=== PATIENT | female | born 1960 | race Caucasian/White ===

== ENCOUNTER 2017-11-03 13:16 | Outpatient (CLI) | payer BC ==
--- NOTE | 2017-11-03 16:07 | ULT ---
ULTRASOUND DOPPLER DUPLEX ARTERIAL BILATERAL LOWER EXTREMITIES: DATE: 11/03/17. HISTORY: A 57-year-old female with: M79.604, bilateral leg pain. I70.209, atherosclerotic peripheral vascular disease. TECHNIQUE: Trevino scale, color flow, and spectral analysis, of major arteries of bilateral lower extremities. FINDINGS: There is atherosclerosis throughout all arteries, mostly mild. Highest peak systolic velocities in cm/s followed by white pulsed Doppler waveform: RIGHT: Common femoral: 155, triphasic. Profunda femoral: 85, triphasic. Superficial femoral proximal: 110, triphasic. Superficial femoral, mid: 140, triphasic. Superficial femoral distal: 135, triphasic. Popliteal: 60, biphasic. Anterior tibial: 65, biphasic. Posterior tibial: 60, monophasic. Dorsalis pedis: 30, monophasic. LEFT: Common femoral: 85, triphasic. Profunda femoral: 95, triphasic. Superficial femoral proximal: 105, triphasic. Superficial femoral, mid: 115, triphasic. Superficial femoral distal: 70, triphasic. Popliteal: 40, biphasic. Anterior tibial: 75, biphasic. Posterior tibial: 50, biphasic. Dorsalis pedis: 30, biphasic. IMPRESSION: 1. Mild atherosclerosis throughout all visualized major arteries of the lower extremities. 2. Monophasic flow in the right dorsalis pedis and right posterior tibial arteries, without large dr op in velocities. This is questionable for possible moderate arterial occlusive disease at the right ankle/foot. 3. No evidence of high-grade arterial occlusive disease in the contralateral left lower extremity. POS: [facility]
== END 2017-11-03 13:17 | disposition home or self-care (01) ==
LOC: ULT 13:16
PROVIDERS: ATTEND Family Medicine
DX: I70.203 Unspecified atherosclerosis of native arteries of extremities, bilateral legs (principal); M79.604 Pain in right leg; M79.605 Pain in left leg
CPT/HCPCS: 93923

== ENCOUNTER 2018-02-18 12:34 | Outpatient (CLI) | payer BC ==
--- NOTE | 2018-02-18 14:37 | BD ---
DEXA BONE DENSITY EXAM: Comparison: 02-11-16, 07-29-13 History: 57-year-old post-menopausal female for screening. Lumbar Spine: BMD (g/cm2) L1 0.643 T-Score: -3.2 L2 0.706 T-Score: -2.9 L3 0.762 T-Score: -2.9 L4 0.970 T-Score: -0.8 L1-L4 0.779 T-Score: -2.4 Femoral Neck: 0.553 T-Score: -2.7 Total Femur: 0.661 T-Score: -2.3 Impression: Osteoporosis. POS: [facility]
== END 2018-02-18 12:35 | disposition home or self-care (01) ==
LOC: BICMAMMO 12:34
PROVIDERS: ATTEND Obstetrics & Gynecology
DX: Z12.31 Encounter for screening mammogram for malignant neoplasm of breast (principal); Z13.820 Encounter for screening for osteoporosis; M81.0 Age-related osteoporosis without current pathological fracture; Z80.3 Family history of malignant neoplasm of breast
CPT/HCPCS: 77063; 77067; 77080

== ENCOUNTER 2018-11-17 07:24 | Outpatient (CLI) | payer BC ==
--- NOTE | 2018-11-17 10:30 | CT ---
CT CHEST WITHOUT CONTRAST: Axial tomograms were obtained through the chest without IV enhancement. Lose-dose protocol was followed for screening. INDICATION: Nicotine dependence. Currently smokes 1 pack per day. No comparison. FINDINGS: Lungs show hyperexpansion with emphysematous changes primarily in the upper lobes with central lobar emphysematous change and small peripheral bullae in the apices. No evidence of effusion or infiltrat e. A 4 mm nodule posterior right upper lobe, image 124 axial. Small 4 mm pleural-based nodule posterior right lower lobe superiorly, image 132 axial. Asymmetric pleural thickening posterior left lower lobe image 131 axial. No suspicious pulmonary mass or nodule. The mediastinum appears unremarkable. Osseous structures unremarkable. IMPRESSION: 1. Chronic lung parenchymal changes with emphysematous changes as described above. 2. Small nodular opacities as described above. Recommend 1-year low-dose screening chest CT. Lung rads 2. POS: [facility]
== END 2018-11-17 07:25 | disposition home or self-care (01) ==
LOC: CT 07:24
PROVIDERS: ATTEND Family Medicine
DX: F17.210 Nicotine dependence, cigarettes, uncomplicated (principal); J43.9 Emphysema, unspecified; R91.8 Other nonspecific abnormal finding of lung field
CPT/HCPCS: G0297

== ENCOUNTER 2019-03-02 10:23 | Outpatient (CLI) | payer BC ==
--- NOTE | 2019-03-02 11:57 | MMO ---
Bilateral MAMMO Bilat Diag [facility]. CLINICAL HISTORY: Patient is 58 years old and is seen for diagnostic exam and lump or thickening in the left breast. The patient has the following family history of breast cancer: mother, malignant (generic). The patient has no personal history of cancer. VIEWS: The views performed were: bilateral craniocaudal with tomosynthesis; bilateral mediolateral oblique with tomosynthesis; and bilateral mediolateral with tomosynthesis. FILMS COMPARED: The present examination has been compared to prior imaging studies performed at [facility] on 02/11/2016, 02/16/2017, 02/18/2018 and 03/02/2019. This study has been interpreted with the assistance of computer-aided detection. MAMMOGRAM FINDINGS: The breasts are extremely dense, which may lower the sensitivity of mammography. There is no radiographic abnormality in the region of the palpable abnormality in the left breast. No sonographic abnormality is seen in the region of palpable abnormality. In the right breast, there are no suspicious masses, calcifications or areas of architectural distortion. IMPRESSION: THERE IS NO MAMMOGRAPHIC EVIDENCE OF MALIGNANCY. NO MAMMOGRAPHIC OR SONOGRAPHIC ABNORMALITIES ARE PRESENT TO CORRELATE WITH THE SITE OF PALPABLE CONCERN. THE PATIENT WILL BE REFERRED BACK TO HER CLINICIAN FOR FURTHER CARE. BIOPSY SHOULD NOT BE PRECLUDED BY THE ABSCENCE OF IMAGING FINDINGS, IN THE SETTING OF CLINICAL CONCERN FOR MALIGNANCY. THE FINDINGS AND RECOMMENDATIONS WERE DISCUSSED WITH THE PATIENT PRIOR TO HER LEAVING THE CENTER. A ROUTINE FOLLOW-UP MAMMOGRAM IN 1 YEAR IS RECOMMENDED. THE RESULTS OF THIS EXAM WERE SENT TO THE PATIENT. ACR BI-RADS Category 1 - Negative MAMMOGRAPHY NOTE: 1. A negative mammogram report should not delay a biopsy if a dominant of clinically suspicious mass is present. 2. Approximately 10% to 15% of breast cancers are not detected by mammography. 3. Adenosis and dense breasts may obscure an underlying neoplasm. Reported by: SUZAN VAUGHN MD Electonically Signed: [id number]
--- NOTE | 2019-03-02 12:53 | ULT ---
LEFT BREAST DIAGNOSTIC SONOGRAM: INDICATIONS: History of palpable abnormality within the left breast. FINDINGS: Left breast images from breast 9 through 12 o'clock positions were obtained. No suspicious sonographi c abnormalities seen within the region of palpable concern, upper inner left breast. IMPRESSION: No suspicious sonographic abnormality within the upper inner left breast. POS: [facility]
== END 2019-03-02 10:24 | disposition home or self-care (01) ==
LOC: BICMAMMO 10:23
PROVIDERS: ATTEND Obstetrics & Gynecology
DX: N64.89 Other specified disorders of breast (principal)
CPT/HCPCS: 77066; G0279

== ENCOUNTER 2021-02-05 13:15 | Outpatient (CLI) | payer OTHER | END 2021-02-05 13:16 | disposition home or self-care (01) | LOC: BICMAMMO 13:15 | PROVIDERS: ATTEND Family Medicine | DX: Z12.31 Encounter for screening mammogram for malignant neoplasm of breast (principal); Z12.2 Encounter for screening for malignant neoplasm of respiratory organs; I70.90 Unspecified atherosclerosis; I25.10 Atherosclerotic heart disease of native coronary artery without angina pectoris; Z80.3 Family history of malignant neoplasm of breast; F17.210 Nicotine dependence, cigarettes, uncomplicated | CPT/HCPCS: 71271; 77063; 77067 ==

== ENCOUNTER 2021-10-09 12:46 | Outpatient (CLI) | payer OTHER | END 2021-10-09 12:47 | disposition home or self-care (01) | LOC: BICMAMMO 12:46 | PROVIDERS: ATTEND Family Medicine | DX: M81.6 Localized osteoporosis [Lequesne] (principal) | CPT/HCPCS: 77080 ==

== ENCOUNTER 2023-11-11 15:43 | Outpatient (CLI) | payer MEDICARE | END 2023-11-11 15:44 | disposition home or self-care (01) | LOC: BICRAD 15:43 | PROVIDERS: ATTEND Podiatrist | DX: M25.571 Pain in right ankle and joints of right foot (principal); M25.572 Pain in left ankle and joints of left foot ==

== ENCOUNTER 2024-01-22 10:03 | Outpatient (CLI) | payer MEDICARE | END 2024-01-22 10:04 | disposition home or self-care (01) | LOC: RAD 10:03 | PROVIDERS: ATTEND Internal Medicine Critical Care Medicine | DX: R06.00 Dyspnea, unspecified (principal); J44.9 Chronic obstructive pulmonary disease, unspecified | CPT/HCPCS: 71046 ==